=== PATIENT | female | born 1965 | race Caucasian/White ===

== ENCOUNTER 2019-01-06 17:54 | Emergency (ER) | payer MEDICAID ==
[~2019-01-06] VITALS: Ht 170.2 cm; Wt 68.2 kg
[2019-01-06 18:24] VITALS: BP 169/117
== END 2019-01-06 20:40 | disposition home or self-care (01) ==
LOC: ER 17:55
DX: S93.491A Sprain of other ligament of right ankle, initial encounter (principal); X50.1XXA Overexertion from prolonged static or awkward postures, initial encounter; Y93.89 Activity, other specified; Y92.098 Other place in other non-institutional residence as the place of occurrence of the external cause; Y99.9 Unspecified external cause status
CPT/HCPCS: 29515; 73610; 73630; 99284